=== PATIENT | female | born 2005 | race Caucasian/White ===

== ENCOUNTER 2025-01-09 14:32 | Emergency (ER) | payer SELFPAY ==
--- NOTE | 2025-01-09 16:20 | EDPHYS ---
Physician Documentation [facility] Name: Joanne Roth Age: 19 yrs Sex: Female : 2005 Arrival Date: 01/09/2025 Time: 14:32 Bed 9 Private MD: ED Physician Binu Pacheco HPI: 01/09 15:00 This 19 yrs old Female presents to ER via Unassigned with complaints of Sore Throat. kb 15:00 Patient is a 19-year-old female who presents for swelling and pain to throat that kb started 4 days ago. States she has not felt sick. Denies fever, cough, congestion, chills, body aches. . 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 Flu vaccine is not up to date. - Infectious Disease History:: Denies. - Social history:: Smoking status: Reported history of juuling and/or vaping. ROS: 15:00 Constitutional: As per HPI kb Exam: 15:00 Constitutional: This is a well developed, well nourished patient who is awake, alert, kb and in no acute distress. Head/Face: Normocephalic, atraumatic. Cardiovascular: Regular rate Respiratory: Respirations even and unlabored. No increased work of breathing. Talking in full sentences Skin: Warm, dry with normal turgor. Normal color. MS/ Extremity: Pulses equal, no cyanosis. Neurovascular intact. Full, normal range of motion. Neuro: Awake and alert, GCS 15, oriented to person, place, time, and situation. 15:00 ENT: Posterior pharynx: Airway: normal, no evidence of obstruction, Tonsils: bilaterally enlarged, with erythema, Uvula: normal, midline, swelling, that is moderate, erythema, that is moderate, Vital Signs: 15:15 BP 134 / 80; Pulse 98; Resp 16; Temp 99.1(O); Pulse Ox 96% on R/A; Weight 61.23 kg; ap3 Height 5 ft. 0 in. ; Pain 7/10; 15:15 Body Mass Index 26.37 (61.23 kg, 152.4 cm) - Percentile 86.0 % ap3 15:15 Pain Scale: Adult ap3 MDM: 14:53 Medical Screening Exam initiated kb 16:19 Differential diagnosis: pharyngitis, tonsillitis, strep. Data reviewed: vital signs, kb nurses notes. Counseling: I had a detailed discussion with the patient and/or guardian regarding the historical points, exam findings, and any diagnostic results supporting the discharge/admit diagnosis, lab results, the need for outpatient follow up, a family practitioner, to return to the emergency department if symptoms worsen or persist or if there are any questions or concerns that arise at home. 01/09 15:00 Order name: Group A Streptococcus Rapid; Complete Time: 16:20 kb Administered Medications: 17:42 Drug: Dexamethasone IM 10 mg IM once Route: IM; Site: left vastus lateralis; ap3 17:58 Follow up: Response: No adverse reaction ss 17:42 Drug: Amoxicillin-Clavulanate PO 875 mg PO once Route: PO; ap3 17:58 Follow up: Response: No adverse reaction ss Disposition: 18:41 Co-signature as Attending Physician, Binu Pacheco MD I reviewed the patient's care rn provided by the Advanced Practice Provider and agree with the diagnosis and treatment plan. Disposition Summary: 01/09/25 16:19 Discharge Ordered Notes: Location: Home kb Condition: Stable kb Diagnosis - Streptococcal pharyngitis kb Followup: kb - With: Emergency Department - When: As needed - Reason: Worsening of condition Followup: kb - With: Private Physician - When: 2 - 3 days - Reason: Recheck today's complaints, Continuance of care, Re-evaluation by your physician Discharge Instructions: - Discharge Summary Sheet kb - Strep Throat, Adult, [id number] kb Forms: - Medication Reconciliation Form kb - Antibiotic Education kb - Prescription Opioid Use kb - Patient Portal Instructions kb - Leadership Thank You Letter kb - Work release form bd Prescriptions: - Augmentin 875-125 mg Oral Tablet - take 1 tablet ORAL route every 12 hours for 10 days; 20 tablet; Refills: 0, kb Product Selection Permitted Signatures: Dispatcher MedHo Vale Huertas, VIRGINIAC POLE CLASSIFIER-Binu Renee MD MD rn Prokisch, Amanda, RN RN ap3 Lucy Bae RN ss Corrections: (The following items were deleted from the chart) 16:38 16:13 Throat Culture ordered. EDMS EDMS
--- NOTE | 2025-01-09 16:20 | ER ---
Nurse's Notes [facility] Name: Joanne Roth Age: 19 yrs Sex: Female : 2005 Arrival Date: 01/09/2025 Time: 14:32 Bed 9 Private MD: Diagnosis: Streptococcal pharyngitis Presentation: 01/09 15:15 Chief complaint: Patient states: she has been having a sore throat for approx 4 days. ap3 patient currently rates her pain as a 7/10 on the pain scale. Coronavirus screen: Client presents with at least one sign or symptom that may indicate coronavirus-19. Ebola Screen: No symptoms or risks identified at this time. Initial Sepsis Screen: Does the patient meet any 2 criteria? HR > 90 bpm. Does the patient have a suspected source of infection? No. Patient's initial sepsis screen is negative. Risk Assessment: Do you want to hurt yourself or someone else? Patient reports no desire to harm self or others. Onset of symptoms was January 05, 2025. 15:15 Method Of Arrival: Ambulatory ap3 15:15 Acuity: DARRICK 4 ap3 Triage Assessment: 15:16 General: Appears in no apparent distress. Behavior is calm, cooperative, appropriate ap3 for age. Pain: Complains of pain in throat. EENT: Reports pain when swallowing. Neuro: Level of Consciousness is awake, alert, obeys commands, Oriented to person, place, time, situation, Appropriate for age Speech is normal. Cardiovascular: Patient's skin is warm and dry. Respiratory: Airway is patent Respiratory effort is even, unlabored, Respiratory pattern is regular, symmetrical. 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 Flu vaccine is not up to date. - Infectious Disease History:: Denies. - Social history:: Smoking status: Reported history of juuling and/or vaping. Screenin:17 [facility] ED Fall Risk Assessment (Adult) History of falling in the last 3 months, ap3 including since admission No falls in past 3 months (0 pts) Confusion or Disorientation No (0 pts) Intoxicated or Sedated No (0 pts) Impaired Gait No (0 pts) Mobility Assist Device Used No (0 pt) Altered Elimination No (0 pt) Score/Fall Risk Level 0 - 2 = Low Risk Oriented to surroundings, Maintained a safe environment, Educated pt \T\ family on fall prevention, incl call for assistance when getting out of bed, Assessed \T\ reinforced patient's understanding of fall precautions, Hourly rounding (assess needs \T\ fall precautionary measures) done, Used ambulatory aids as needed (educated on \T\ assisted with). Abuse screen: Denies threats or abuse. Nutritional screening: No deficits noted. Tuberculosis screening: No symptoms or risk factors identified. Assessment: 17:58 General: Appears in no apparent distress. comfortable. Pain: Complains of pain in ss throat Pain currently is 7 out of 10 on a pain scale. Is continuous. Respiratory: Airway is patent Respiratory effort is even, unlabored, Respiratory pattern is regular, symmetrical. Derm: Skin is intact, is healthy with good turgor, Skin is pink, warm \T\ dry. normal. Vital Signs: 15:15 BP 134 / 80; Pulse 98; Resp 16; Temp 99.1(O); Pulse Ox 96% on R/A; Weight 61.23 kg; ap3 Height 5 ft. 0 in. ; Pain 7/10; 15:15 Body Mass Index 26.37 (61.23 kg, 152.4 cm) - Percentile 86.0 % ap3 15:15 Pain Scale: Adult ap3 ED Course: 14:50 Patient arrived in ED. al6 14:53 Vale Alexis F[facility]-C [facility] kb 14:53 Binu Pacheco MD is Attending Physician. kb 15:16 Triage completed. ap3 15:17 Arm band placed on right wrist. ap3 15:47 Group A Streptococcus Rapid Sent. bc6 17:58 Lucy Bae, DENZEL is Primary Nurse. ss 17:58 Patient has correct armband on for positive identification. Bed in low position. ss 17:58 No provider procedures requiring assistance completed. Patient did not have IV access ss during this emergency room visit. Administered Medications: 17:42 Drug: Dexamethasone IM 10 mg IM once Route: IM; Site: left vastus lateralis; ap3 17:58 Follow up: Response: No adverse reaction ss 17:42 Drug: Amoxicillin-Clavulanate PO 875 mg PO once Route: PO; ap3 17:58 Follow up: Response: No adverse reaction ss Medication: 17:58 VIS not applicable for this client. ss Outcome: 16:19 Discharge ordered by . jarek 17:58 Discharged to home ambulatory, 17:58 Condition: good 17:58 Discharge instructions given to patient, Instructed on discharge instructions, follow up and referral plans. medication usage, Demonstrated understanding of instructions, follow-up care, medications, Prescriptions given X 1, 17:59 Patient left the ED. ss Signatures: Vale Alexis, ASSISTANT DIRECTOR OF RESIDENCE LIFE-C ASSISTANT DIRECTOR OF RESIDENCE LIFE-Lucy Arias RN RN ss Keshia Aiken RN RN ap3 Lary Alvarez Yas Abernathy6
[2025-01-09] MEDS ORDERED: AMOX/K CLAV 875 MG TAB ONE (17:38)
[2025-01-09] MEDS ORDERED: dexAMETHasone 10 MG/ML VIAL ONE (17:38)
[2025-01-09 18:10] VITALS: BP 134/80; TEMP 99.1; O2SAT 96
== END 2025-01-09 17:59 | disposition home or self-care (01) ==
LOC: EDBD 14:32 → ER 14:32
DX: J02.0 Streptococcal pharyngitis (principal)
CPT/HCPCS: 36415; 96372; 99284; J1100